=== PATIENT | male | born 1990 | race African-American/Black ===

== ENCOUNTER 2016-09-05 23:58 | Emergency (ER) | payer SELFPAY ==
[~2016-09-05] VITALS: Ht 188 cm; Wt 77.1 kg
[~2016-09-05 23:58] MED LIST: CYCLOBENZAPRINE10 MG ORAL; IBUPROFEN400 MG ORAL; IBUPROFEN600 MG ORAL; IBUPROFEN600 MG PO; NKM; VALIUM5 MG ORAL; ZOFRAN ODT4 MG ORAL
[2016-09-06] MEDS ORDERED: NKM (00:07)
[2016-09-06] MEDS ORDERED: ZYRTEC10 MG ORAL (00:15)
[2016-09-06] MEDS ORDERED: AMOXICILLIN500 MG ORAL (00:15)
[2016-09-06 00:18] VITALS: BP 113/72
--- NOTE | 2016-09-06 00:30 | Emergency Room Report ---
History of Present Illness General Chief Complaint: Earache Source: Patient Present Illness HPI Patient present with complaints of discomfort to both tears reports that in December he was laying down in water when he felt water going to his ears he has had problem off-and-on since then He feels pressure behind the ear and discomfort Denies any headache denies any neck pain Denies any chest pain or shortness of breath Allergies: Coded Allergies: No Known Allergies (Unverified , 04/09/13) Patient History Past Medical History: see triage record Pertinent Family History: none Reviewed Nursing Documentation: PMH: Agreed, PSxH: Agreed Nursing Documentation-PMH Past Medical History: No History, Except For Hx Cardiac Problems: No Hx Hypertension: No Hx Pacemaker: No Hx Asthma: Yes Hx COPD: No Hx Diabetes: No Hx Cancer: No Hx Gastrointestinal Problems: Yes - Appendectomy Hx Dialysis: No Hx Neurological Problems: No Hx Cerebrovascular Accident: No - Hx Seizures: No Review of Systems All Other Systems: negative except mentioned in HPI Physical Exam Vital Signs Date Time Temp Pulse Resp B/P Pulse Ox O2 Delivery O2 Flow Rate FiO2 09/06/16 00:02 98.4 90 16 113/72 97 Room Air Sp02 EP Interpretation: reviewed, normal General Appearance: well appearing, no apparent distress Head: normocephalic, atraumatic Eyes: bilateral eye EOMI, bilateral eye PERRL ENT: hearing grossly normal, normal pharynx, uvula midline, other - Mild evidence of erythema at both tympanic membrane, mild bulging Neck: full range of motion, supple, no meningismus, no bony tend Respiratory: lungs clear, normal breath sounds, no rhonchi, no respiratory distress, no retraction, no accessory muscle use Cardiovascular #1: normal peripheral pulses, regular rate, rhythm, no edema, no gallop, no JVD, no murmur Gastrointestinal: normal bowel sounds, non tender, soft, no mass, no organomegaly, non-distended, no guarding, no hernia, no pulsatile mass, no rebound Musculoskeletal: normal inspection Neurologic: oriented x3, responsive, fill technician III-XII nml as tested, motor strength/ tone normal, sensory intact Psychiatric: mood/affect normal Skin: normal color, no rash, warm/dry, palpation normal Lymphatic: normal inspection, no adenopathy Medical Decision Making Diagnostic Impression: Primary Impression: Earache symptoms in both ears Additional Impression: otitis media ER Course Patient symptoms are in line with otitis media Placed on oral antibiotics along with decongestant Patient stable for close outpatient followup we did discuss that if there is any lack of improvement further followup with ear specialty would be appropriate Last Vital Signs Date Time Temp Pulse Resp B/P Pulse Ox O2 Delivery O2 Flow Rate FiO2 09/06/16 00:18 98.4 80 16 113/72 97 Room Air Status: unchanged Disposition: HOME, SELF-CARE Condition: Stable Scripts Cetirizine Hcl* (ZYRTEC*) 10 Mg Tablet 10 MG ORAL DAILY, #30 TAB 0 Refills Prov: AMERICA BEAL D.O. 09/06/16 Amoxicillin* (AMOXIL*) 500 Mg Capsule 500 MG ORAL THREE TIMES A DAY, #21 CAP Prov: AMERICA BEAL D.O. 09/06/16 Patient Instructions: Otitis Media, Adult, Earache Additional Instructions: Patient is provided with the discharge instructions notified to follow up with primary doctor in the next 2-3 days otherwise return to the er with any worsening symptoms. Please note that this report is being documented using [employer] technology. This can lead to erroneous entry secondary to incorrect interpretation by the dictating instrument. AMERICA BEAL D.O. Sep 06, 2016 00:30
== END 2016-09-06 00:18 | disposition home or self-care (01) ==
LOC: EMR 09-06 00:15
DX: H92.03 Otalgia, bilateral (principal); H66.90 Otitis media, unspecified, unspecified ear; Z90.89 Acquired absence of other organs
CPT/HCPCS: 99284